=== PATIENT | female | born 1990 | race Two or more races ===

== ENCOUNTER 2020-03-18 08:34 | Emergency (ER) | payer OTHER ==
[~2020-03-18] VITALS: Ht 172.7 cm; Wt 59.1 kg
[2020-03-18 08:36] VITALS: BP 141/95
--- NOTE | 2020-03-18 08:44 | NUR ---
Pt in no distress, steady gait, speaking easily, RR even and unlabored, skin warm pink and dry.
== END 2020-03-18 10:23 | disposition home or self-care (01) ==
LOC: ER 08:35
DX: B34.9 Viral infection, unspecified (principal); Z20.828 Contact with and (suspected) exposure to other viral communicable diseases
CPT/HCPCS: 87635; 99283; C9803